=== PATIENT | female | born 1970 | race American Indian/Alaskan Native ===

== ENCOUNTER 2019-07-02 13:19 | Inpatient (IN) | payer MEDICARE ==
[2019-07-02] MEDS ORDERED: SODIUM CHLORIDE 0.9% 1000 ML 1,000 ML IV ONE (14:02)
--- NOTE | 2019-07-02 14:09 | Emergency Department Report ---
ED General Adult HPI - General Chief complaint: Chest Pain Stated complaint: N/V Time Seen by Provider: 07/02/19 14:02 Source: patient, EMS Mode of arrival: Stretcher Limitations: No Limitations - History of Present Illness Initial comments: Patient is a 48-year-old female who is presenting with shortness of breath and palpitations. Patient states that she's been having some mild nausea as well. Patient denies chest pain but states she has just a fluttering in the chest is uncomfortable. His symptoms of this for present for the past 2 days. Patient recently started minoxidil 10 mg and she is being weaned off of clonidine. Patient is on her second day of her weaning process. Patient denies fevers chills cough cold congestion sore throat or neck stiffness. - Related Data Previous Rx's Medication Instructions Recorded Last Taken Type EPINEPHrine (NF) [Epipen (Nf)] 0.3 mg IM ONCE #1 syringekit 01/16/16 Unknown Rx predniSONE [Deltasone] 20 mg PO QDAY #5 tab 01/16/16 Unknown Rx Allergies Allergy/AdvReac Type Severity Reaction Status Date / Time lisinopril Allergy Anaphylaxis Verified 01/16/16 01:36 montelukast sodium Allergy Swelling Verified 01/16/16 01:36 [From Singulair] verapamil Allergy Hives Verified 01/16/16 01:36 ED Review of Systems ROS: Stated complaint: N/V Other details as noted in HPI Comment: All other systems reviewed and negative ED Past Medical Hx - Past Medical History Hx Hypertension: Yes Hx Renal Disease: Yes (not needing dialysis) - Surgical History Past Surgical History?: Yes Additional Surgical History: partial hysterectomy - Social History Smoking Status: Former Smoker Substance Use Type: None - Medications Home Medications: Home Medications Medication Instructions Recorded Confirmed Last Taken Type EPINEPHrine (NF) [Epipen (Nf)] 0.3 mg IM ONCE #1 syringekit 01/16/16 Unknown Rx predniSONE [Deltasone] 20 mg PO QDAY #5 tab 01/16/16 Unknown Rx ED Physical Exam - General Limitations: No Limitations General appearance: alert, in no apparent distress - Head Head exam: Present: atraumatic, normocephalic - Eye Eye exam: Present: normal appearance - ENT ENT exam: Present: normal orophraynx, mucous membranes moist - Neck Neck exam: Present: normal inspection - Respiratory Respiratory exam: Present: normal lung sounds bilaterally. Absent: respiratory distress, wheezes, rales, rhonchi - Cardiovascular Cardiovascular Exam: Present: normal rhythm, tachycardia. Absent: systolic murmur, diastolic murmur, rubs, gallop - GI/Abdominal GI/Abdominal exam: Present: soft, normal bowel sounds. Absent: distended, tenderness, guarding, rebound - Extremities Exam Extremities exam: Present: normal inspection - Back Exam Back exam: Present: normal inspection - Neurological Exam Neurological exam: Present: alert, oriented X3 - Psychiatric Psychiatric exam: Present: normal affect, normal mood - Skin Skin exam: Present: warm, dry, intact, normal color. Absent: rash ED Course Vital Signs 07/02/19 07/02/19 07/02/19 13:35 14:19 14:20 Temperature 98.6 F Pulse Rate 124 H 123 H 123 H Respiratory 12 18 Rate Blood Pressure 166/112 159/106 Blood Pressure 159/102 [Left] O2 Sat by Pulse 98 100 Oximetry 07/02/19 07/02/19 07/02/19 16:03 16:15 16:37 Temperature Pulse Rate 110 H 100 H 100 H Respiratory 18 16 Rate Blood Pressure 162/102 Blood Pressure 189/119 162/102 [Left] O2 Sat by Pulse 99 97 Oximetry 07/02/19 07/02/19 16:38 17:29 Temperature Pulse Rate 102 H 100 H Respiratory 18 18 Rate Blood Pressure Blood Pressure 145/101 148/92 [Left] O2 Sat by Pulse 99 100 Oximetry ED Medical Decision Making - Lab Data Result diagrams: 07/02/19 13:55 07/02/19 13:55 Lab Results 07/02/19 07/02/19 07/02/19 Range/Units 13:55 13:55 13:55 WBC 6.3 (4.5-11.0) K/mm3 RBC 4.41 (3.65-5.03) M/mm3 Hgb 13.2 (10.1-14.3) gm/dl Hct 40.3 (30.3-42.9) % MCV 91 (79-97) fl MCH 30 (28-32) pg MCHC 33 (30-34) % RDW 14.1 (13.2-15.2) % Plt Count 279 (140-440) K/mm3 Lymph % (Auto) 45.4 H (13.4-35.0) % [place] % (Auto) 10.7 H (0.0-7.3) % Eos % (Auto) 1.1 (0.0-4.3) % Baso % (Auto) 0.7 (0.0-1.8) % Lymph # 2.9 (1.2-5.4) K/mm3 [place] # 0.7 (0.0-0.8) K/mm3 Eos # 0.1 (0.0-0.4) K/mm3 Baso # 0.0 (0.0-0.1) K/mm3 Seg Neutrophils % 42.1 (40.0-70.0) % Seg Neutrophils # 2.7 (1.8-7.7) K/mm3 PT 13.0 (12.2-14.9) Sec. INR 0.99 (0.87-1.13) APTT 29.1 (24.2-36.6) Sec. D-Dimer 2099.05 H (0-234) ng/mlDDU Sodium 140 (137-145) mmol/L Potassium 3.2 L (3.6-5.0) mmol/L Chloride 98.1 (98-107) mmol/L Carbon Dioxide 24 (22-30) mmol/L Anion Gap 21 mmol/L BUN 26 H (7-17) mg/dL Creatinine 3.3 H (0.7-1.2) mg/dL Estimated GFR 18 ml/min BUN/Creatinine Ratio 8 % Glucose 147 H (65-100) mg/dL Calcium 9.2 (8.4-10.2) mg/dL Total Bilirubin 0.30 (0.1-1.2) mg/dL AST 20 (5-40) units/L ALT 13 (7-56) units/L Alkaline Phosphatase 77 (35-129) units/L Troponin T 0.167 H* (0.00-0.029) ng/mL Total Protein 8.2 (6.3-8.2) g/dL Albumin 4.4 (3.9-5) g/dL Albumin/Globulin Ratio 1.2 % Triglycerides 164 H (2-149) mg/dL Cholesterol 248 H (50-199) mg/dL LDL Cholesterol Direct 184 H (50-130) mg/dL HDL Cholesterol 49 (40-59) mg/dL Cholesterol/HDL Ratio 5.06 % Patient had kidney function testing 1 week ago her GFR was 25 BU and 18 creatinine 2.55. - EKG Data -: EKG Interpreted by De EKG shows normal: sinus rhythm, axis, intervals, QRS complexes, ST-T waves Rate: tachycardia - Radiology Data NUCLEAR MEDICINE VENTILATION/PERFUSION LUNG SCAN INDICATION: Tachycardia. Shortness of breath. TECHNIQUE: 10 mCi of Xe-133 were given by inhalation. 5 mCi of Tc-99m MAA were given by IV. COMPARISON: Chest radiograph from earlier today. FINDINGS: VENTILATION: No significant ventilation defects. PERFUSION: No significant perfusion defects. ADDITIONAL FINDINGS: None. IMPRESSION: 1. Low probability for pulmonary embolism. Signer Name: Marvin York MD Signed: 07/02/2019 3:44 PM Workstation Name: [id number] Transcribed By: SUKUMAR Dictated By: Marvin York MD Electronically Authenticated By: Ordering Physician: VINAY VASQUEZ MD Date of Service: 07/02/19 Procedure(s): XR chest routine 2V Accession Number(s): [id number] cc: VINAY VASQUEZ MD Fluoro Time In Minutes: CHEST 2 VIEWS INDICATION / CLINICAL INFORMATION: Chest Pain. COMPARISON: None available. FINDINGS: SUPPORT DEVICES: None. HEART / MEDIASTINUM: Normal heart size. Atherosclerosis in the thoracic aorta. LUNGS / PLEURA: No significant pulmonary or pleural abnormality. No pneumothorax. ADDITIONAL FINDINGS: No significant additional findings. IMPRESSION: 1. No acute findings. Signer Name: Osmany Hernandes MD Signed: 07/02/2019 2:18 PM Workstation Name: [id number] - Medical Decision Making He is a 48-year-old [place] female presenting with elevated blood pressure. The patient's likely having some mild rebound hypertension secondary to being weaned off of her clonidine. Patient said chest pain and some nausea shortness of breath after being taken off this medication. Patient's renal function has worsened since last week. We were able to obtain records from her [facility]. Patient also has elevation of her troponin. There is no history of elevated troponins in our system. The assumption is that the patient because she has chest pain as having a incidentally to proven otherwise. We will watch L serial troponins overnight. Patient's blood pressure did respond to second dose of labetalol. Critical care attestation.: If time is entered above; I have spent that time in minutes in the direct care of this critically ill patient, excluding procedure time. ED Disposition Clinical Impression: NSTEMI (non-ST elevated myocardial infarction), Rebound hypertension, Tachycardia, Acute on chronic renal failure Disposition: OP ADMIT IP TO THIS HOSP Is pt being admited?: Yes Does the pt Need Aspirin: No Condition: Stable Time of Disposition: 17:55
[2019-07-02 14:20] LABS: Basophils % (Auto) 0.7 % (0.0-1.8); Eosinophils # (Auto) 0.1 K/mm3 (0.0-0.4); Eosinophils % (Auto) 1.1 % (0.0-4.3); Hematocrit 40.3 % (30.3-42.9); Hemoglobin 13.2 gm/dl (10.1-14.3); Lymphocytes # (Auto) 2.9 K/mm3 (1.2-5.4); Lymphocytes % (Auto) 45.4 % (13.4-35.0); Mean Corpuscular HGB Conc 33 % (30-34); Mean Corpuscular Volume 91 fl (79-97); Monocytes # (Auto) 0.7 K/mm3 (0.0-0.8); Monocytes % (Auto) 10.7 % (0.0-7.3); Platelet Count 279 K/mm3 (140-440); Red Blood Count 4.41 M/mm3 (3.65-5.03); Red Cell Distribution Width 14.1 % (13.2-15.2)
--- NOTE | 2019-07-02 14:23 | XRay Report ---
CHEST 2 VIEWS INDICATION / CLINICAL INFORMATION: Chest Pain. COMPARISON: None available. FINDINGS: SUPPORT DEVICES: None. HEART / MEDIASTINUM: Normal heart size. Atherosclerosis in the thoracic aorta. LUNGS / PLEURA: No significant pulmonary or pleural abnormality. No pneumothorax. ADDITIONAL FINDINGS: No significant additional findings. IMPRESSION: 1. No acute findings. Signer Name: Osmany Hernandes MD Signed: 07/02/2019 2:18 PM Workstation Name: [id number]
[2019-07-02 14:33] LABS: INR 0.99 (0.87-1.13); Partial Thromboplastin Time 29.1 Sec. (24.2-36.6)
[2019-07-02 14:39] LABS: Albumin 4.4 g/dL (3.9-5); Calcium 9.2 mg/dL (8.4-10.2)
[2019-07-02 15:21] LABS: Chol/HDL Ratio 5.06 %
--- NOTE | 2019-07-02 15:49 | Nuclear Medicine Report ---
NUCLEAR MEDICINE VENTILATION/PERFUSION LUNG SCAN INDICATION: Tachycardia. Shortness of breath. TECHNIQUE: 10 mCi of Xe-133 were given by inhalation. 5 mCi of Tc-99m MAA were given by IV. COMPARISON: Chest radiograph from earlier today. FINDINGS: VENTILATION: No significant ventilation defects. PERFUSION: No significant perfusion defects. ADDITIONAL FINDINGS: None. IMPRESSION: 1. Low probability for pulmonary embolism. Signer Name: Marvin York MD Signed: 07/02/2019 3:44 PM Workstation Name: [id number]
[2019-07-02] MEDS ORDERED: MORPHINE 4 MG/1 ML INJ IV ONE ×2 (16:13→17:27)
[2019-07-02] MEDS ORDERED: ONDANSETRON 4 MG/2 ML INJ IV ONE (16:39)
[2019-07-02] MEDS ORDERED: HEPARIN 10,000 UNITS/10 ML VIAL IV ONE (17:45)
[2019-07-02] MEDS ORDERED: DICYCLOMINE 20 MG/2 ML INJ IM ONE ×2 (17:45→17:46)
[2019-07-02] MEDS ORDERED: ASPIRIN 325 MG TAB PO ONE (17:50)
[2019-07-02 18:35] LABS: Hematocrit 36.3 % (30.3-42.9); Hemoglobin 12.3 gm/dl (10.1-14.3)
[2019-07-02 18:49] LABS: INR 1.02 (0.87-1.13)
[2019-07-02 18:50] LABS: Partial Thromboplastin Time 27.2 Sec. (24.2-36.6)
[2019-07-02] MEDS: HEPARIN/ 0.45% NACL DRIP 25,000 UNIT/500 ML BAG IV SCH (19:09)
[2019-07-02] MEDS ORDERED: ASPIRIN 325 MG TAB ONE (19:22)
[2019-07-02] MEDS ORDERED: NON-FORMULARY EACH (Losartan [Cozaar] 100 MG) PO SCH (21:15)
[2019-07-02] MEDS ORDERED: EPINEPHRINE 0.3 MG IM SCH (21:15)
--- NOTE | 2019-07-02 21:18 | History and Physical Report ---
History of Present Illness Date of examination: 07/02/19 Date of admission: 07/02/19 17:56 Chief complaint: SOB History of present illness: Patient is a 48-year-old female with h/o HTN, stage 4 CKD with Cr 2.5, h/o CVA w/o any residual weakness who is presenting with shortness of breath and palpitations for last two days. Patient recently started minoxidil 10 mg and she is being weaned off of clonidine. Patient is on her second day of her weaning process. Patient states that she's been having some mild nausea as well. Patient denies chest pain but states that she feels chest tightness. She believes may be symptoms developed b/o her new med minoxidil. Patient denies fevers chills cough cold congestion sore throat or neck stiffness. In the ER her BP was 166/112, K 3.0 and Cr 3.3. Her troponin was also elevated with ST on EKG. She is being admitted for further evaluation and Mx. Review of System: Constitutional: no fever, no chills, no weight loss Ears, eyes, nose, mouth and throat: no nasal congestion, no nasal discharge, no sinus pressure, no vision change, no red eye. Neck: No neck pain or rigidity. Cardiovascular: + chest tightness, no orthopnea, no palpitations, no leg swelling Respiratory: + shortness of breath now resolved, no cough, no congestion, no wheezing Gastrointestinal: no abdominal pain, no nausea, no vomiting Genitourinary : no dysuria, no hematuria Musculoskeletal: no joint swelling or muscle ache Integumentary: no rash, no pruritis Neurological: no parathesias, no numbness, no tingling Endocrine: no cold or heat intolerance, no polyuria or polydipsia Hematologic/Lymphatic: no easy bruising, no easy bleeding, no gland swelling Allergic/Immunologic: no urticaria, no angioedema. Medications and Allergies Allergies Allergy/AdvReac Type Severity Reaction Status Date / Time lisinopril Allergy Anaphylaxis Verified 01/16/16 01:36 montelukast sodium Allergy Swelling Verified 01/16/16 01:36 [From [facility]] verapamil Allergy Hives Verified 01/16/16 01:36 Home Medications Medication Instructions Recorded Confirmed Last Taken Type EPINEPHrine (NF) [Epipen (Nf)] 0.3 mg IM ONCE #1 syringekit 01/16/16 Unknown Rx predniSONE [Deltasone] 20 mg PO QDAY #5 tab 01/16/16 Unknown Rx Allopurinol [Zyloprim] 100 mg PO BID 07/02/19 Unknown History Aspirin [Adult Aspirin] 07/02/19 Unknown History Cholecalciferol (Vitamin D3) 07/02/19 Unknown History [Vitamin D3 5,000 UNIT] Doxazosin [Cardura] 8 mg PO HS 07/02/19 07/02/19 Unknown History Ergocalciferol [Vitamin D2] 1 cap PO QWEEK 07/02/19 07/02/19 Unknown History Ergocalciferol [Vitamin D2] 50,000 unit PO 07/02/19 Unknown History Furosemide [Lasix TAB] 40 mg PO BID 07/02/19 07/02/19 Unknown History Gabapentin [Neurontin] 300 mg PO Q8HR 07/02/19 07/02/19 Unknown History Losartan [Cozaar] 100 mg PO QDAY 07/02/19 07/02/19 Unknown History Losartan/Hydrochlorothiazide 07/02/19 Unknown History [Losartan-Hctz 100-25 mg Tab] Metoprolol Succinate [Toprol Xl] PO BID 07/02/19 Unknown History Minoxidil [Loniten] 10 mg PO QDAY 07/02/19 07/02/19 Unknown History Nitroglycerin [Nitrostat] 07/02/19 Unknown History cloNIDine [Catapres] 0.3 mg PO TID 07/02/19 07/02/19 Unknown History Active Meds: Active Medications Allopurinol (Zyloprim) 100 mg PO BID [facility]ENKA Doxazosin Mesylate (Cardura) 8 mg PO HS [facility] Ergocalciferol (Vitamin D2) unit PO QWEEK [facility] Ergocalciferol (Vitamin D2) 50,000 unit PO QWEEK [facility] Furosemide (Lasix) 40 mg PO BID [facility] Gabapentin (Gabapentin) 300 mg PO Q8HR [facility] Heparin Sodium/Sodium Chloride (Heparin/ 0.45% Nacl-25,000 Unit/500 Ml) 25,000 unit in 500 mls @ 20 mls/hr IV TITRATE LENKA; Protocol Last Admin: 07/02/19 19:09 Dose: 1,000 units/hr, 20 mls/hr Documented by: Sodium Chloride (Nacl 0.9% 1000 Ml) 1,000 mls @ 125 mls/hr IV DIRECT LENKA Metoprolol Succinate (Metoprolol Xl) 100 mg PO BID LENKA Miscellaneous Medication (Losartan [Cozaar]) 100 mg PO QDAY LENKA Miscellaneous Medication (Epinephrine (Nf)) 0.3 mg IM ONCE LENKA Exam - Physical Exam Narrative exam: GENERAL: well-developed and obese AAF lying on bed appeared to be in no discomfort. HEENT: Normocephalic. Atraumatic. No conjunctival congestion or icterus. Patient has moist mucous membranes. NECK: Supple. Trachea midline. CHEST/LUNGS: Clear to auscultated bilaterally, breathing nonlabored. No wheezes crackles or rhonchi. HEART/CARDIOVASCULAR: Regular in rate and rhythm. S1 and S2 positive. ABDOMEN: Abdomen is soft, nontender. Patient has normal bowel sounds. SKIN: There is no rash. Warm and dry. NEURO: No focal motor deficit. Follows command. MUSCULOSKELETAL: No joint effusion or tenderness. EXTRIMITY: No edema, no cyanosis or clubbing. PSYCH: Cooperative. - Constitutional Vitals: Temp Pulse Resp BP Pulse Ox 98.6 F 112 H 17 159/110 95 07/02/19 20:49 07/02/19 20:49 07/02/19 20:49 07/02/19 20:49 07/02/19 20:49 Results - Labs CBC & Chem 7: 07/02/19 18:18 07/03/19 02:25 Labs: Abnormal lab results 07/02/19 07/02/19 07/02/19 Range/Units 13:55 13:55 13:55 Lymph % (Auto) 45.4 H (13.4-35.0) % [place] % (Auto) 10.7 H (0.0-7.3) % D-Dimer 2099.05 H (0-234) ng/mlDDU Potassium 3.2 L (3.6-5.0) mmol/L BUN 26 H (7-17) mg/dL Creatinine 3.3 H (0.7-1.2) mg/dL Glucose 147 H (65-100) mg/dL Troponin T 0.167 H* (0.00-0.029) ng/mL Triglycerides 164 H (2-149) mg/dL Cholesterol 248 H (50-199) mg/dL LDL Cholesterol Direct 184 H (50-130) mg/dL Assessment and Plan Accelerated HTN - resume home meds, hydralazine iv as needed - hold minoxidil/clonidine/ACEI for now due to JUAN LUIS Acute Respiratory distress, resolved now - nebs as needed - normal cxr, negative VQ scan - will get 2d echo JUAN LUIS on CKD stage IV - monitor renal function - consult nephrology in the am - baseline Cr 2.5, hold ACEI for now h/o CVA w/o any hameparesis - start on aspirin and statin hypokalemia, replete HLD, cont statin Elevated troponin - tanya NSTEMI type 2 ? - monitor with serial CE and EKG - will place on Aspirin, statin, BB, heparin drip - as needed SL NTG and iv morphin for pain - order 2D echo and consult cardiology - cardiac diet now, NPO after midnight for further possible cardiac workup Obesity, diet and exercise recommendation when medically stable DVT Px, heparin drip Radiological data: CXR - no infiltrates VQ scan - low probability for PE
[2019-07-02] MEDS ORDERED: POTASSIUM CHLORIDE ER 20 MEQ TAB PO ONE (22:00)
[2019-07-02] MEDS ORDERED: allopurinoL 100 MG TAB PO SCH (22:00)
[2019-07-02] MEDS: SODIUM CHLORIDE 0.9% 1000 ML 1,000 ML IV SCH (22:11)
[2019-07-02] MEDS: GABAPENTIN 300 MG CAP PO SCH (22:12)
[2019-07-02] MEDS: METOPROLOL SUCCINATE XL 100 MG TAB PO SCH (22:12)
[2019-07-02] MEDS: DOXAZOSIN 4 MG TAB PO SCH (22:13)
[2019-07-02] MEDS: FUROSEMIDE 40 MG TAB PO SCH (22:16)
[2019-07-02] MEDS: ONDANSETRON 4 MG/2 ML INJ IV PRN (22:42)
[2019-07-02] MEDS: MORPHINE 2 MG/1 ML INJ IV PRN (23:54)
[2019-07-03 03:08] LABS: Calcium 8.9 mg/dL (8.4-10.2)
[2019-07-03] MEDS: SODIUM CHLORIDE 0.9% 1000 ML 1,000 ML IV SCH (06:40)
[2019-07-03] MEDS: ONDANSETRON 4 MG/2 ML INJ IV PRN ×2 (06:41→12:58)
[2019-07-03] MEDS: GABAPENTIN 300 MG CAP PO SCH ×3 (06:41→21:35)
[2019-07-03] MEDS: FUROSEMIDE 40 MG TAB PO SCH ×2 (06:41→18:55)
[2019-07-03] MEDS: MORPHINE 2 MG/1 ML INJ IV PRN (06:41)
[2019-07-03] MEDS: HEPARIN/ 0.45% NACL DRIP 25,000 UNIT/500 ML BAG IV SCH ×2 (08:32→20:01)
[2019-07-03] MEDS: ASPIRIN 325 MG TAB PO SCH (10:32)
[2019-07-03] MEDS: allopurinoL 100 MG TAB PO SCH (10:32)
[2019-07-03] MEDS: METOPROLOL SUCCINATE XL 100 MG TAB PO SCH ×2 (10:32→21:36)
[2019-07-03] MEDS: LOSARTAN 50 MG TAB PO SCH (10:32)
--- NOTE | 2019-07-03 11:04 | Consultation ---
History of Present Illness Consult date: 07/03/19 Requesting physician: TRUE BUNN Consult reason: elevated troponin History of present illness: The patient has a history of hypertension and she is on multiple medications. She claims that she was experiencing what she describes as migraine headaches on clonidine. As such, about a week ago, her PCP decided to start weaning her off clonidine. She was started on minoxidil one week ago. Since initiation of the medication, she has been experiencing palpitations, dizziness and fatigue. She presented to the emergency department with worsening of symptoms associated with substernal chest pressure and dyspnea. Her troponin is mildly elevated. Due to significantly elevated d-dimer, she had a VQ scan which was of low probability for pulmonary embolism. Her cholesterol level is 248 with an LDL of 184. Past History Past Medical History: hypertension Past Surgical History: cholecystectomy, hysterectomy (partial) Social history: denies: smoking, alcohol abuse Family history: CAD Medications and Allergies Allergies Allergy/AdvReac Type Severity Reaction Status Date / Time lisinopril Allergy Anaphylaxis Verified 01/16/16 01:36 montelukast sodium Allergy Swelling Verified 01/16/16 01:36 [From Singulair] verapamil Allergy Hives Verified 01/16/16 01:36 Home Medications Medication Instructions Recorded Confirmed Last Taken Type EPINEPHrine (NF) [Epipen (Nf)] 0.3 mg IM ONCE #1 syringekit 01/16/16 Unknown Rx predniSONE [Deltasone] 20 mg PO QDAY #5 tab 01/16/16 Unknown Rx Allopurinol [Zyloprim] 100 mg PO BID 07/02/19 Unknown History Aspirin [Adult Aspirin] 07/02/19 Unknown History Cholecalciferol (Vitamin D3) 07/02/19 Unknown History [Vitamin D3 5,000 UNIT] Doxazosin [Cardura] 8 mg PO HS 07/02/19 07/02/19 Unknown History Ergocalciferol [Vitamin D2] 1 cap PO QWEEK 07/02/19 07/02/19 Unknown History Ergocalciferol [Vitamin D2] 50,000 unit PO 07/02/19 Unknown History Furosemide [Lasix TAB] 40 mg PO BID 07/02/19 07/02/19 Unknown History Gabapentin [Neurontin] 300 mg PO Q8HR 07/02/19 07/02/19 Unknown History Losartan [Cozaar] 100 mg PO QDAY 07/02/19 07/02/19 Unknown History Losartan/Hydrochlorothiazide 07/02/19 Unknown History [Losartan-Hctz 100-25 mg Tab] Metoprolol Succinate [Toprol Xl] PO BID 07/02/19 Unknown History Minoxidil [Loniten] 10 mg PO QDAY 07/02/19 07/02/19 Unknown History Nitroglycerin [Nitrostat] 07/02/19 Unknown History cloNIDine [Catapres] 0.3 mg PO TID 07/02/19 07/02/19 Unknown History Active Meds: Active Medications Allopurinol (Zyloprim) 100 mg PO QDAY [facility] Last Admin: 07/03/19 10:32 Dose: 100 mg Documented by: Aspirin (Aspirin) 325 mg PO QDAY [facility] Last Admin: 07/03/19 10:32 Dose: 325 mg Documented by: Atorvastatin Calcium (Lipitor) 40 mg PO QHS [facility] Last Admin: 07/02/19 22:12 Dose: 40 mg Documented by: Doxazosin Mesylate (Cardura) 8 mg PO HS [facility] Last Admin: 07/02/19 22:13 Dose: 8 mg Documented by: Ergocalciferol (Vitamin D2) 50,000 unit PO Tu [facility] Furosemide (Lasix) 40 mg PO 0600,1800 [facility] Last Admin: 07/03/19 06:41 Dose: 40 mg Documented by: Gabapentin (Gabapentin) 300 mg PO Q8HR [facility] Last Admin: 07/03/19 06:41 Dose: 300 mg Documented by: Heparin Sodium/Sodium Chloride (Heparin/ 0.45% Nacl-25,000 Unit/500 Ml) 25,000 unit in 500 mls @ 20 mls/hr IV TITRATE LENKA; Protocol Last Admin: 07/03/19 08:32 Dose: 900 units/hr, 18 mls/hr Documented by: Sodium Chloride (Nacl 0.9% 1000 Ml) 1,000 mls @ 125 mls/hr IV DIRECT [facility] Last Admin: 07/03/19 06:40 Dose: 125 mls/hr Documented by: Losartan Potassium (Cozaar) 100 mg PO QDAY [facility] Last Admin: 07/03/19 10:32 Dose: 100 mg Documented by: Metoprolol Succinate (Metoprolol Xl) 100 mg PO BID [facility] Last Admin: 07/03/19 10:32 Dose: 100 mg Documented by: Morphine Sulfate (Morphine) 2 mg IV Q4H PRN PRN Reason: Pain, Moderate (4-6) Last Admin: 07/03/19 06:41 Dose: 2 mg Documented by: Ondansetron HCl (Zofran) 4 mg IV Q6H PRN PRN Reason: Nausea And Vomiting Last Admin: 07/03/19 06:41 Dose: 4 mg Documented by: Review of Systems Constitutional: no fever, no chills Ears, nose, mouth and throat: no ear pain, no ear discharge, no sore throat Cardiovascular: chest pain, palpitations, lightheadedness, shortness of breath Respiratory: shortness of breath, no cough, no hemoptysis Gastrointestinal: no abdominal pain, no nausea, no vomiting, no diarrhea, no constipation Genitourinary Female: no dysuria, no urinary frequency Rectal: no pain, no bleeding Musculoskeletal: no neck stiffness, no neck pain, no myalgias Integumentary: no rash, no pruritis Neurological: no parathesias, no numbness, no headaches Endocrine: no cold intolerance, no heat intolerance Hematologic/Lymphatic: no easy bruising, no easy bleeding Allergic/Immunologic: no urticaria, no wheezing Physical Examination Vital Signs Last Vital Signs Temp 98.3 F 07/03/19 03:58 Pulse 94 H 07/03/19 10:32 Resp 18 07/03/19 06:41 BP 119/73 07/03/19 10:32 Pulse Ox 95 07/03/19 03:58 General appearance: no acute distress HEENT: Positive: EOMI, Normocephaly, Mucus Membranes Moist Neck: Positive: neck supple, trachea midline Cardiac: Positive: Reg Rate and Rhythm, S1/S2 Lungs: Positive: clear to auscultation Neuro: Positive: Grossly Intact Abdomen: Positive: Soft, Active Bowel Sounds. Negative: Tender Skin: Positive: Clear. Negative: Rash Musculoskeletal: Normal Range of Motion Extremities: Present: normal. Absent: edema Results 07/02/19 18:18 07/03/19 02:25 Cardiac Enzymes 07/02/19 Range/Units 13:55 AST 20 (5-40) units/L Coagulation 07/02/19 07/02/19 Range/Units 13:55 18:18 PT 13.0 13.3 (12.2-14.9) Sec. INR 0.99 1.02 (0.87-1.13) APTT 29.1 27.2 (24.2-36.6) Sec. Lipids 07/02/19 Range/Units 13:55 Triglycerides 164 H (2-149) mg/dL Cholesterol 248 H (50-199) mg/dL HDL Cholesterol 49 (40-59) mg/dL Cholesterol/HDL Ratio 5.06 % CBC 07/02/19 07/02/19 Range/Units 13:55 18:18 WBC 6.3 (4.5-11.0) K/mm3 RBC 4.41 (3.65-5.03) M/mm3 Hgb 13.2 12.3 (10.1-14.3) gm/dl Hct 40.3 36.3 (30.3-42.9) % Plt Count 279 251 (140-440) K/mm3 Lymph # 2.9 (1.2-5.4) K/mm3 [place] # 0.7 (0.0-0.8) K/mm3 Eos # 0.1 (0.0-0.4) K/mm3 Baso # 0.0 (0.0-0.1) K/mm3 Comprehensive Metabolic Panel 07/02/19 07/03/19 Range/Units 13:55 02:25 Sodium 140 142 (137-145) mmol/L Potassium 3.2 L 4.1 D (3.6-5.0) mmol/L Chloride 98.1 101.4 (98-107) mmol/L Carbon Dioxide 24 24 (22-30) mmol/L BUN 26 H 24 H (7-17) mg/dL Creatinine 3.3 H 3.0 H (0.7-1.2) mg/dL Glucose 147 H 116 H (65-100) mg/dL Calcium 9.2 8.9 (8.4-10.2) mg/dL AST 20 (5-40) units/L ALT 13 (7-56) units/L Alkaline Phosphatase 77 (35-129) units/L Total Protein 8.2 (6.3-8.2) g/dL Albumin 4.4 (3.9-5) g/dL - Imaging and Cardiology EKG: image reviewed EKG interpretations - Telemetry EKG Rhythm: Sinus Rhythm - EKG Sinus rhythms and dysrhythmias: sinus rhythm AV and intraventricular conduction: right bundle branch block Myocardial infarction: inferior AR (old age inde Assessment and Plan Optimize antihypertensive regimen. Schedule Lexiscan stress MPI in a.m. Obtain echocardiogram. - Patient Problems (1) Elevated troponin level Current Visit: Yes Status: Acute (2) Chest pain Current Visit: Yes Status: Acute (3) CKD (chronic kidney disease) Current Visit: Yes Status: Chronic Qualifiers: Chronic kidney disease stage: stage 4 (severe) Qualified Code(s): N18.4 - Chronic kidney disease, stage 4 (severe) (4) Hypertension Current Visit: Yes Status: Chronic Qualifiers: Hypertension type: essential hypertension Qualified Code(s): I10 - Essential (primary) hypertension (5) Hyperlipidemia Current Visit: Yes Status: Acute
[2019-07-03] MEDS ORDERED: ACETAMINOPHEN 325 MG TAB PO PRN (13:22)
--- NOTE | 2019-07-03 18:53 | Progress Note ---
Assessment and Plan Assessment and plan: Patient is a 48-year-old woman with h/o refractory HTN, stage 4 CKD with Cr 2.5 and 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 She started having these palpitation after PCP started to wean off clonidine to Minoxidil, which also causes nausea. In the ER her BP was 166/112, K 3.0 and Cr 3.3. Her troponin and D-dimer were elevated with ST changes on EKG. * pCXR - no infiltrates * VQ scan - low probability for PE NSTEMI with chest pains: on iv heparin drip, stress test in am, ECHO pending Ruled out PE Accelerated HTN - resume home meds, hydralazine iv as needed- hold minoxidil/clonidine/ACEI for now due to JUAN LUIS Acute Respiratory failure, poa, resolved now JUAN LUIS on CKD stage IV - monitor renal function- consult nephrology- baseline Cr 2.5, hold ACEI for now h/o CVA w/o any hemiparesis- start on aspirin and statin Hypokalemia, replete: monitor bmp closely, check mg level HLD, cont statin DVT Px, heparin drip History Interval history: Patient was seen and examined. Follow-up on current diagnosis uncontrolled bp and chest pains, still present. No overnight events reported to me. Patient denies any nausea/vomiting or severe headaches. Imaging, nursing note, chart, labs and old chart reviewed. Discussed with patient. Hospitalist Physical - Physical exam Narrative exam: Gen: WDWN, NAD, Awake, Alert, Orientated HEENT: NCAT, EOMI, PERRL, OP Clear Neck: supple, no adenopathy, no thyromegaly, no JVD CVS/Heart: RRR, normal S1S2, pulses present bilaterally Chest/Lungs: CTA B, Symmetrical chest expansion, good air entry bilaterally GI/Abdomen: soft, NTND, good bowel sounds, no guarding or rebound /Bladder: no suprapubic tenderness, no CVA or paraspinal tenderness Extermity/Skin: no c/c/e, no obvious rash MSK: FROM x 4 Neuro: CN 2-12 grossly intact, no new focal deficits Psych: calm - Constitutional Vitals: Temp Pulse Resp BP Pulse Ox 97.9 F 96 H 18 142/96 99 11/20/19 18:05 07/03/19 18:05 07/03/19 18:05 07/03/19 18:05 07/03/19 18:05 General appearance: Present: no acute distress Results - Labs CBC & Chem 7: 07/02/19 18:18 07/03/19 02:25 Labs: Laboratory Last Values WBC 6.3 K/mm3 (4.5-11.0) 07/02/19 13:55 RBC 4.41 M/mm3 (3.65-5.03) 07/02/19 13:55 Hgb 12.3 gm/dl (10.1-14.3) 07/02/19 18:18 Hct 36.3 % (30.3-42.9) 07/02/19 18:18 MCV 91 fl (79-97) 07/02/19 13:55 MCH 30 pg (28-32) 07/02/19 13:55 MCHC 33 % (30-34) 07/02/19 13:55 RDW 14.1 % (13.2-15.2) 07/02/19 13:55 Plt Count 251 K/mm3 (140-440) 07/02/19 18:18 Lymph % (Auto) 45.4 % (13.4-35.0) H 07/02/19 13:55 [place] % (Auto) 10.7 % (0.0-7.3) H 07/02/19 13:55 Eos % (Auto) 1.1 % (0.0-4.3) 07/02/19 13:55 Baso % (Auto) 0.7 % (0.0-1.8) 07/02/19 13:55 Lymph # 2.9 K/mm3 (1.2-5.4) 07/02/19 13:55 [place] # 0.7 K/mm3 (0.0-0.8) 07/02/19 13:55 Eos # 0.1 K/mm3 (0.0-0.4) 07/02/19 13:55 Baso # 0.0 K/mm3 (0.0-0.1) 07/02/19 13:55 Seg Neutrophils % 42.1 % (40.0-70.0) 07/02/19 13:55 Seg Neutrophils # 2.7 K/mm3 (1.8-7.7) 07/02/19 13:55 PT 13.3 Sec. (12.2-14.9) 07/02/19 18:18 INR 1.02 (0.87-1.13) 07/02/19 18:18 APTT 27.2 Sec. (24.2-36.6) 07/02/19 18:18 D-Dimer 2099.05 ng/mlDDU (0-234) H 07/02/19 13:55 Heparin Anti-Xa Level 0.32 U.I./ml (0.3-0.7) 07/03/19 14:39 Sodium 142 mmol/L (137-145) 07/03/19 02:25 Potassium 4.1 mmol/L (3.6-5.0) D 07/03/19 02:25 Chloride 101.4 mmol/L (98-107) 07/03/19 02:25 Carbon Dioxide 24 mmol/L (22-30) 07/03/19 02:25 Anion Gap 21 mmol/L 07/03/19 02:25 BUN 24 mg/dL (7-17) H 07/03/19 02:25 Creatinine 3.0 mg/dL (0.7-1.2) H 07/03/19 02:25 Estimated GFR 20 ml/min 07/03/19 02:25 BUN/Creatinine Ratio 8 % 07/03/19 02:25 Glucose 116 mg/dL (65-100) H 07/03/19 02:25 Calcium 8.9 mg/dL (8.4-10.2) 07/03/19 02:25 Total Bilirubin 0.30 mg/dL (0.1-1.2) 07/02/19 13:55 AST 20 units/L (5-40) 07/02/19 13:55 ALT 13 units/L (7-56) 07/02/19 13:55 Alkaline Phosphatase 77 units/L (35-129) 07/02/19 13:55 Troponin T 0.088 ng/mL (0.00-0.029) H 07/03/19 17:48 Total Protein 8.2 g/dL (6.3-8.2) 07/02/19 13:55 Albumin 4.4 g/dL (3.9-5) 07/02/19 13:55 Albumin/Globulin Ratio 1.2 % 07/02/19 13:55 Triglycerides 164 mg/dL (2-149) H 07/02/19 13:55 Cholesterol 248 mg/dL (50-199) H 07/02/19 13:55 LDL Cholesterol Direct 184 mg/dL (50-130) H 07/02/19 13:55 HDL Cholesterol 49 mg/dL (40-59) 07/02/19 13:55 Cholesterol/HDL Ratio 5.06 % 07/02/19 13:55 Active Medications - Current Medications Current Medications: Generic Name Dose Route Start Last Admin Trade Name Freq PRN Reason Stop Dose Admin Acetaminophen 650 mg 07/03/19 13:22 Tylenol PO Q6H PRN Pain, Mild (1-3) Allopurinol 100 mg 07/03/19 10:00 07/03/19 10:32 Zyloprim PO 100 mg QDAY LENKA Administration Aspirin 325 mg 07/03/19 10:00 07/03/19 10:32 Aspirin PO 325 mg QDAY LENKA Administration Atorvastatin Calcium 40 mg 07/02/19 22:00 07/02/19 22:12 Lipitor PO 40 mg QHS LENKA Administration Doxazosin Mesylate 8 mg 07/02/19 22:00 07/02/19 22:13 Cardura PO 8 mg HS LENKA Administration Ergocalciferol 50,000 unit 07/09/19 10:00 Vitamin D2 PO Tu LENKA Furosemide 40 mg 07/02/19 22:00 07/03/19 06:41 Lasix PO 40 mg 0600,1800 LENKA Administration Gabapentin 300 mg 07/02/19 22:00 07/03/19 14:12 Gabapentin PO 300 mg Q8HR LENKA Administration Heparin Sodium/Sodium Chloride 25,000 unit in 500 mls @ 20 mls/hr 07/02/19 19:00 07/03/19 08:32 Heparin/ 0.45% Nacl-25,000 Unit/500 Ml IV 900 units/hr TITRATE LENKA 18 mls/hr Administration Protocol 1,000 UNITS/HR Sodium Chloride 1,000 mls @ 125 mls/hr 07/02/19 18:00 07/03/19 06:40 Nacl 0.9% 1000 Ml IV 125 mls/hr DIRECT LENKA Administration Losartan Potassium 100 mg 07/03/19 10:00 07/03/19 10:32 Cozaar PO 100 mg QDAY LENKA Administration Metoprolol Succinate 100 mg 07/02/19 22:00 07/03/19 10:32 Metoprolol Xl PO 100 mg BID LENKA Administration Morphine Sulfate 2 mg 07/02/19 22:54 07/03/19 06:41 Morphine IV 2 mg Q4H PRN Administration Pain, Moderate (4-6) Ondansetron HCl 4 mg 07/02/19 22:18 07/03/19 12:58 Zofran IV 4 mg Q6H PRN Administration Nausea And Vomiting
[2019-07-03] MEDS: DOXAZOSIN 4 MG TAB PO SCH (21:34)
[2019-07-04] MEDS: FUROSEMIDE 40 MG TAB PO SCH (06:17)
[2019-07-04] MEDS: GABAPENTIN 300 MG CAP PO SCH ×2 (06:17→13:15)
[2019-07-04 06:20] LABS: Hematocrit 34.9 % (30.3-42.9); Hemoglobin 11.4 gm/dl (10.1-14.3); Mean Corpuscular HGB Conc 33 % (30-34); Mean Corpuscular Volume 94 fl (79-97); Platelet Count 247 K/mm3 (140-440); Red Blood Count 3.72 M/mm3 (3.65-5.03)
[2019-07-04 06:42] LABS: Calcium 8.6 mg/dL (8.4-10.2)
[2019-07-04] MEDS ORDERED: REGADENOSON 0.4 MG/5 ML INJ IV ONE (08:00)
[2019-07-04] MEDS ORDERED: LORazepam 2 MG/ML VIAL ONE (08:17)
[2019-07-04] MEDS ORDERED: LORazepam 2 MG/ML VIAL IV PRN ×2 (08:21→18:00)
[2019-07-04] MEDS ORDERED: LORazepam 2 MG/ML VIAL IV NR (09:30)
[2019-07-04 10:36] VITALS: BP 121/78
[2019-07-04] MEDS: LOSARTAN 50 MG TAB PO SCH (10:40)
[2019-07-04] MEDS: METOPROLOL SUCCINATE XL 100 MG TAB PO SCH (10:40)
[2019-07-04] MEDS: allopurinoL 100 MG TAB PO SCH (10:40)
[2019-07-04] MEDS: ASPIRIN 325 MG TAB PO SCH (10:40)
--- NOTE | 2019-07-04 11:00 | Progress Note ---
Assessment and Plan The pt was brought down for stress test this morning and according to the RN at bedside, pt experienced generalized tonic clonic activity. She received her first radioactive injection and resting images were obtained and then she developed suspected seizure, she did not receive lexiscan. Additionally, pt c/o chills with apparent rigors. Stress test cancelled and lexiscan is known to reduce seizure threshold. Chest pain currently resolved. Recommend further w/o of possible seizure and consider neurology consultation per primary team. Echo reviewed - EF 55-60%, mild LVH, impaired relaxation. Cont present cardiac medical management. The patient has been seen in conjunction with Dr. Haas who agrees with the assessment and plan of care. - Patient Problems (1) Seizure Current Visit: Yes Status: Suspected (2) Chest pain Current Visit: Yes Status: Resolved (3) Elevated troponin level Current Visit: Yes Status: Acute (4) CKD (chronic kidney disease) Current Visit: Yes Status: Chronic Qualifiers: Chronic kidney disease stage: stage 4 (severe) Qualified Code(s): N18.4 - Chronic kidney disease, stage 4 (severe) (5) Hypertension Current Visit: Yes Status: Chronic Qualifiers: Hypertension type: essential hypertension Qualified Code(s): I10 - Essential (primary) hypertension (6) Hyperlipidemia Current Visit: Yes Status: Chronic Subjective Date of service: 07/04/19 Principal diagnosis: elevated trop; chest pain Interval history: The pt was brought down for stress test this morning and according to the RN at bedside, pt experienced generalized tonic clonic activity. Additionally, pt c/o chills with apparent rigors. stress test cancelled. Objective Last Vital Signs Temp 98.0 F 07/04/19 09:26 Pulse 95 H 07/04/19 10:40 Resp 18 07/04/19 09:26 BP 121/78 07/04/19 10:40 Pulse Ox 94 07/04/19 09:26 - Physical Examination General: No Apparent Distress HEENT: Positive: EOMI, Normocephaly, Mucus Membranes Moist Neck: Positive: neck supple, trachea midline Cardiac: Positive: Reg Rate and Rhythm, S1/S2 Lungs: Positive: Decreased Breath Sounds Neuro: Positive: Grossly Intact Abdomen: Positive: Soft, Active Bowel Sounds. Negative: Tender Skin: Positive: Clear. Negative: Rash Musculoskeletal: Normal Range of Motion Extremities: Present: normal. Absent: edema - Labs and Meds CBC 07/04/19 Range/Units 05:50 WBC 4.6 (4.5-11.0) K/mm3 RBC 3.72 (3.65-5.03) M/mm3 Hgb 11.4 (10.1-14.3) gm/dl Hct 34.9 (30.3-42.9) % Plt Count 247 (140-440) K/mm3 Comprehensive Metabolic Panel 07/04/19 Range/Units 05:50 Sodium 142 (137-145) mmol/L Potassium 4.4 (3.6-5.0) mmol/L Chloride 106.7 (98-107) mmol/L Carbon Dioxide 22 (22-30) mmol/L BUN 18 H (7-17) mg/dL Creatinine 2.6 H (0.7-1.2) mg/dL Glucose 109 H (65-100) mg/dL Calcium 8.6 (8.4-10.2) mg/dL - Imaging and Cardiology EKG: image reviewed - Telemetry EKG Rhythm: Sinus Rhythm - EKG Sinus rhythms and dysrhythmias: sinus rhythm AV and intraventricular conduction: right bundle branch block Myocardial infarction: inferior VT (old age inde
--- NOTE | 2019-07-04 11:38 | Consultation ---
History of Present Illness - Reason for Consult Consult date: 07/05/19 acute renal failure, chronic renal failure Requesting physician: DEBBIE MEDINA - History of Present Illness 48-year-old lady with a history of hypertension, stage IV chronic kidney disease and cerebrovascular accident who presents on account of shortness of breath, palpitations and chest tightness of 2 days with duration. Patient was recently started on minoxidil and was being weaned off clonidine. She denies any fever or chills. No cough. In the ER blood pressure was 160/112 mmHg. Potassium was low at 3 mmol /L and creatinine increased from 2.6-3.3 mg/dL. I'm consulted to assist with managing this. Patient is unable to give a history when I examined her. She was drowsy. Apparently she received Ativan for possible Seizure when she went for stress test. Past History Past Medical History: hypertension, renal failure (stage IV chronic kidney disease), stroke Past Surgical History: cholecystectomy, hysterectomy (partial) Social history: denies: smoking, alcohol abuse Family history: CAD Medications and Allergies Allergies Allergy/AdvReac Type Severity Reaction Status Date / Time lisinopril Allergy Anaphylaxis Verified 01/16/16 01:36 montelukast sodium Allergy Swelling Verified 01/16/16 01:36 [From Singulair] verapamil Allergy Hives Verified 01/16/16 01:36 Home Medications Medication Instructions Recorded Confirmed Last Taken Type predniSONE [Deltasone] 20 mg PO QDAY #5 tab 01/16/16 Unknown Rx Allopurinol [Zyloprim] 100 mg PO BID 07/02/19 Unknown History Aspirin [Adult Aspirin] 07/02/19 Unknown History Cholecalciferol (Vitamin D3) 07/02/19 Unknown History [Vitamin D3 5,000 UNIT] Doxazosin [Cardura] 8 mg PO HS 07/02/19 07/02/19 Unknown History Ergocalciferol [Vitamin D2] 1 cap PO QWEEK 07/02/19 07/02/19 Unknown History Ergocalciferol [Vitamin D2] 50,000 unit PO 07/02/19 Unknown History Furosemide [Lasix TAB] 40 mg PO BID 07/02/19 07/02/19 Unknown History Gabapentin [Neurontin] 300 mg PO Q8HR 07/02/19 07/02/19 Unknown History Losartan [Cozaar] 100 mg PO QDAY 07/02/19 07/02/19 Unknown History Losartan/Hydrochlorothiazide 07/02/19 Unknown History [Losartan-Hctz 100-25 mg Tab] Metoprolol Succinate [Toprol Xl] PO BID 07/02/19 Unknown History Minoxidil [Loniten] 10 mg PO QDAY 07/02/19 07/02/19 Unknown History Nitroglycerin [Nitrostat] 0.4 mg SL PRN 07/02/19 07/03/19 Unknown History cloNIDine [Catapres] 0.3 mg PO TID 07/02/19 07/02/19 Unknown History Active Meds: Active Medications Acetaminophen (Tylenol) 650 mg PO Q6H PRN PRN Reason: Pain, Mild (1-3) Last Admin: 07/04/19 06:21 Dose: 650 mg Documented by: Allopurinol (Zyloprim) 100 mg PO QDAY [facility] Last Admin: 07/04/19 10:40 Dose: 100 mg Documented by: Aspirin (Aspirin) 325 mg PO QDAY [facility] Last Admin: 07/04/19 10:40 Dose: 325 mg Documented by: Atorvastatin Calcium (Lipitor) 40 mg PO QHS [facility] Last Admin: 07/03/19 21:36 Dose: 40 mg Documented by: Doxazosin Mesylate (Cardura) 8 mg PO HS [facility] Last Admin: 07/03/19 21:34 Dose: 8 mg Documented by: Ergocalciferol (Vitamin D2) 50,000 unit PO Tu [facility] Furosemide (Lasix) 40 mg PO 0600,1800 [facility] Last Admin: 07/04/19 06:17 Dose: 40 mg Documented by: Gabapentin (Gabapentin) 300 mg PO Q8HR [facility] Last Admin: 07/04/19 06:17 Dose: 300 mg Documented by: Sodium Chloride (Nacl 0.9% 1000 Ml) 1,000 mls @ 125 mls/hr IV DIRECT [facility] Last Admin: 07/03/19 06:40 Dose: 125 mls/hr Documented by: Losartan Potassium (Cozaar) 100 mg PO QDAY [facility] Last Admin: 07/04/19 10:40 Dose: 100 mg Documented by: Metoprolol Succinate (Metoprolol Xl) 100 mg PO BID [facility] Last Admin: 07/04/19 10:40 Dose: 100 mg Documented by: Morphine Sulfate (Morphine) 2 mg IV Q4H PRN PRN Reason: Pain, Moderate (4-6) Last Admin: 07/03/19 06:41 Dose: 2 mg Documented by: Ondansetron HCl (Zofran) 4 mg IV Q6H PRN PRN Reason: Nausea And Vomiting Last Admin: 07/03/19 12:58 Dose: 4 mg Documented by: Review of Systems ROS unobtainable: due to mental status Exam - Vital Signs Vital signs: Vital Signs Resp 07/02/19 13:29 - Physical Exam Narrative exam: Middle-aged -[place] female lying in bed in no acute distress HEENT: NCAT, pink oral mucous membrane Neck: Supple, no venous distention CVS: S1S2 RRR with no murmur, rub or gallop Chest: Clear to auscultation Abdomen: Obese, soft, nontender, no organomegaly, bowel sounds are present Extremities: No edema Neuro: Drowsy, arousable but goes back to sleep, alert no focal deficits Results - Lab Results 07/04/19 05:50 07/04/19 05:50 Most recent lab results Calcium 8.6 mg/dL (8.4-10.2) 07/04/19 05:50 Assessment and Plan - Patient Problems (1) Other acute kidney failure Status: Acute Plan to address problem: Acute kidney injury possibly of hemodynamic origin versus secondary to malignant hypertensive nephrosclerosis. Blood pressure was elevated on presenting. Get urine studies. Follow-up renal function. Gentle volume repletion. Monitor electrolytes and renal function (2) Chronic kidney disease, stage 4 (severe) Status: Acute Plan to address problem: Chronic kidney disease stage IV presently secondary to hypertensive nephrosclerosis. (3) Hypertensive chronic kidney disease with stage 1 through stage 4 chronic kidney disease, or unspecified chronic kidney disease Status: Acute Plan to address problem: Follow blood pressure on adjusted medications (4) Hypokalemia Status: Acute Plan to address problem: Supplement potassium and follow-up
[2019-07-04] MEDS: SODIUM CHLORIDE 0.9% 1000 ML 1,000 ML IV SCH (14:53)
[2019-07-04 16:02] LABS: Bacteria,Urine 1+ /HPF (Negative); Bilirubin,Urine NEG (Negative); Blood,Urine NEG (Negative); Color,Urine Straw (Yellow); Mucus,Urine FEW /HPF; Protein,Urine <15 mg/dL mg/dL (Negative); Urobilinogen,Urine < 2.0 mg/dL (<2.0)
[2019-07-04 16:17] LABS: Creatinine,Urine 97.9 mg/dL (0.1-20.0)
--- NOTE | 2019-07-04 17:56 | Progress Note ---
Assessment and Plan Assessment and plan: Patient is a 48-year-old woman with h/o refractory HTN, stage 4 CKD with Cr 2.5 and 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 She started having these palpitation after PCP started to wean off clonidine to Minoxidil, which also causes nausea. In the ER her BP was 166/112, K 3.0 and Cr 3.3. Her troponin and D-dimer were elevated with nonspecific ST changes on EKG. * pCXR - no infiltrates * VQ scan - low probability for PE NSTEMI with chest pains: treated with IV heparin drip, stress test attempted, ECHO reviewed Ruled out PE Accelerated HTN - resume home meds, hydralazine iv as needed- hold minoxidil/clonidine/ACEI for now due to JUAN LUIS Acute Respiratory failure, poa, resolved now JUAN LUIS on CKD stage IV - monitor renal function- consult nephrology- baseline Cr 2.5, hold ACEI for now h/o CVA w/o any hemiparesis- start on aspirin and statin Hypokalemia, replete: monitor bmp closely, check mg level HLD, cont statin DVT Px, heparin sq pt was down in stress test and [facility] called for sz like activity. Pt had similar episode yesterday, where she has whole body shaking but she is able to talk/mumble during these episodes. She calls it shivering. Also, she had no post-ictal state after this episode. 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 She says that her temple is really stressing her out, she was called regarding one of her member being suicidal. Cardiology cancelled stress test thinking that the Lexiscan that was given may attributed to the seizure. Patient never had seizure before. Consulted Neurology and ordered EEG. Patient is threatening to leave AMA, she wants to go to [facility]. Counseling done. History Interval history: Patient was seen and examined. Follow-up on current diagnosis uncontrolled bp and chest pains, still present. No overnight events reported to me. Patient denies any nausea/vomiting or severe headaches. Imaging, nursing note, chart, labs and old chart reviewed. Discussed with patient. Hospitalist Physical - Physical exam Narrative exam: Gen: WDWN, NAD, Awake, Alert, Orientated HEENT: NCAT, EOMI, PERRL, OP Clear Neck: supple, no adenopathy, no thyromegaly, no JVD CVS/Heart: RRR, normal S1S2, pulses present bilaterally Chest/Lungs: CTA B, Symmetrical chest expansion, good air entry bilaterally GI/Abdomen: soft, NTND, good bowel sounds, no guarding or rebound /Bladder: no suprapubic tenderness, no CVA or paraspinal tenderness Extermity/Skin: no c/c/e, no obvious rash MSK: FROM x 4 Neuro: CN 2-12 grossly intact, no new focal deficits Psych: calm - Constitutional Vitals: Temp Pulse Resp BP Pulse Ox 98.0 F 95 H 18 121/78 94 07/04/19 09:26 07/04/19 10:40 07/04/19 09:26 07/04/19 10:40 07/04/19 09:26 General appearance: Present: no acute distress Results - Labs CBC & Chem 7: 07/04/19 05:50 07/04/19 05:50 Labs: Laboratory Last Values WBC 4.6 K/mm3 (4.5-11.0) 07/04/19 05:50 RBC 3.72 M/mm3 (3.65-5.03) 07/04/19 05:50 Hgb 11.4 gm/dl (10.1-14.3) 07/04/19 05:50 Hct 34.9 % (30.3-42.9) 07/04/19 05:50 MCV 94 fl (79-97) 07/04/19 05:50 MCH 31 pg (28-32) 07/04/19 05:50 MCHC 33 % (30-34) 07/04/19 05:50 RDW 14.0 % (13.2-15.2) 07/04/19 05:50 Plt Count 247 K/mm3 (140-440) 07/04/19 05:50 Lymph % (Auto) 45.4 % (13.4-35.0) H 07/02/19 13:55 [place] % (Auto) 10.7 % (0.0-7.3) H 07/02/19 13:55 Eos % (Auto) 1.1 % (0.0-4.3) 07/02/19 13:55 Baso % (Auto) 0.7 % (0.0-1.8) 07/02/19 13:55 Lymph # 2.9 K/mm3 (1.2-5.4) 07/02/19 13:55 [place] # 0.7 K/mm3 (0.0-0.8) 07/02/19 13:55 Eos # 0.1 K/mm3 (0.0-0.4) 07/02/19 13:55 Baso # 0.0 K/mm3 (0.0-0.1) 07/02/19 13:55 Seg Neutrophils % 42.1 % (40.0-70.0) 07/02/19 13:55 Seg Neutrophils # 2.7 K/mm3 (1.8-7.7) 07/02/19 13:55 PT 13.3 Sec. (12.2-14.9) 07/02/19 18:18 INR 1.02 (0.87-1.13) 07/02/19 18:18 APTT 27.2 Sec. (24.2-36.6) 07/02/19 18:18 D-Dimer 2099.05 ng/mlDDU (0-234) H 07/02/19 13:55 Heparin Anti-Xa Level < 0.10 U.I./ml (0.3-0.7) L 07/04/19 15:05 Sodium 142 mmol/L (137-145) 07/04/19 05:50 Potassium 4.4 mmol/L (3.6-5.0) 07/04/19 05:50 Chloride 106.7 mmol/L (98-107) 07/04/19 05:50 Carbon Dioxide 22 mmol/L (22-30) 07/04/19 05:50 Anion Gap 18 mmol/L 07/04/19 05:50 BUN 18 mg/dL (7-17) H 07/04/19 05:50 Creatinine 2.6 mg/dL (0.7-1.2) H 07/04/19 05:50 Estimated GFR 24 ml/min 07/04/19 05:50 BUN/Creatinine Ratio 7 % 07/04/19 05:50 Glucose 109 mg/dL (65-100) H 07/04/19 05:50 POC Glucose 110 (70-105) H 07/04/19 08:23 Calcium 8.6 mg/dL (8.4-10.2) 07/04/19 05:50 Total Bilirubin 0.30 mg/dL (0.1-1.2) 07/02/19 13:55 AST 20 units/L (5-40) 07/02/19 13:55 ALT 13 units/L (7-56) 07/02/19 13:55 Alkaline Phosphatase 77 units/L (35-129) 07/02/19 13:55 Troponin T 0.088 ng/mL (0.00-0.029) H 07/03/19 17:48 Total Protein 8.2 g/dL (6.3-8.2) 07/02/19 13:55 Albumin 4.4 g/dL (3.9-5) 07/02/19 13:55 Albumin/Globulin Ratio 1.2 % 07/02/19 13:55 Triglycerides 164 mg/dL (2-149) H 07/02/19 13:55 Cholesterol 248 mg/dL (50-199) H 07/02/19 13:55 LDL Cholesterol Direct 184 mg/dL (50-130) H 07/02/19 13:55 HDL Cholesterol 49 mg/dL (40-59) 07/02/19 13:55 Cholesterol/HDL Ratio 5.06 % 07/02/19 13:55 Urine Color Straw (Yellow) 07/04/19 11:41 Urine Turbidity Clear (Clear) 07/04/19 11:41 Urine pH 5.0 (5.0-7.0) 07/04/19 11:41 Ur Specific [place] 1.009 (1.003-1.030) 07/04/19 11:41 Urine Protein <15 mg/dl mg/dL (Negative) 07/04/19 11:41 Urine Glucose (UA) Neg mg/dL (Negative) 07/04/19 11:41 Urine Ketones Neg mg/dL (Negative) 07/04/19 11:41 Urine Blood Neg (Negative) 07/04/19 11:41 Urine Nitrite Neg (Negative) 07/04/19 11:41 Urine Bilirubin Neg (Negative) 07/04/19 11:41 Urine Urobilinogen < 2.0 mg/dL (<2.0) 07/04/19 11:41 Ur Leukocyte Esterase Neg (Negative) 07/04/19 11:41 Urine WBC (Auto) 1.0 /HPF (0.0-6.0) 07/04/19 11:41 Urine RBC (Auto) 2.0 /HPF (0.0-6.0) 07/04/19 11:41 U Epithel Cells (Auto) 7.0 /HPF (0-13.0) 07/04/19 11:41 Urine Bacteria (Auto) 1+ /HPF (Negative) 07/04/19 11:41 Urine Mucus Few /HPF 07/04/19 11:41 Urine Creatinine 97.9 mg/dL (0.1-20.0) H 07/04/19 15:20 Urine Sodium 90 mmol/L 07/04/19 15:20 Urine Total Protein 7 mg/dL (5-11.8) 07/04/19 15:20
[2019-07-04] MEDS ORDERED: ACETAMINOPHEN 325 MG TAB PO PRN (17:59)
[2019-07-04] MEDS ORDERED: ONDANSETRON 4 MG/2 ML INJ IV PRN (17:59)
[2019-07-04] MEDS ORDERED: SODIUM CHLORIDE 0.45% 1000 ML 1,000 ML IV SCH (18:00)
--- NOTE | 2019-07-04 18:16 | Discharge Summary ---
Providers - Providers Date of Admission: 07/02/19 17:56 Date of discharge: 07/04/19 Attending physician: DEBBIE MEDINA 07/02/19 21:13 Consult to Physician [CONS] Routine Comment: Consulting Provider: ANUPAM PRETTY Physician Instructions: Reason For Exam: elevated trop 07/03/19 19:02 Consult to Physician [CONS] Routine Comment: Consulting Provider: DEBI DEGROOT Physician Instructions: Reason For Exam: ARF/CKD 07/04/19 15:51 Consult to Physician [CONS] Routine Comment: Consulting Provider: MIO MARTIN Physician Instructions: Reason For Exam: ?seizure, EEG needed Primary care physician: HELIO BAUTISTA MD Hospitalization Condition: Undetermined Hospital course: Patient is a 48-year-old woman with h/o refractory HTN, stage 4 CKD with Cr 2.5 and 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 She started having these palpitation after PCP started to wean off clonidine to Minoxidil, which also causes nausea. In the ER her BP was 166/112, K 3.0 and Cr 3.3. Her troponin and D-dimer were elevated with nonspecific ST changes on EKG. * pCXR - no infiltrates * VQ scan - low probability for PE NSTEMI with chest pains: treated with IV heparin drip, stress test attempted, ECHO reviewed Ruled out PE Accelerated HTN - resume home meds, hydralazine iv as needed- hold minoxidil/clonidine/ACEI for now due to JUAN LUIS Acute Respiratory failure, poa, resolved now JUAN LUIS on CKD stage IV - monitor renal function- consult nephrology- baseline Cr 2.5, hold ACEI for now h/o CVA w/o any hemiparesis- start on aspirin and statin Hypokalemia, replete: monitor bmp closely, check mg level HLD, cont statin DVT Px, heparin sq pt was down in stress test and CODE MET called for sz like activity. Pt had similar episode yesterday, where she has whole body shaking but she is able to talk/mumble during these episodes. She calls it shivering. Also, she had no post-ictal state after this episode. 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 She says that her yarsani is really stressing her out, she was called regarding one of her member being suicidal. Cardiology cancelled stress test thinking that the Lexiscan that was given may attributed to the seizure. Patient never had seizure before. Consulted Neurology and ordered EEG. Patient left AMA, she always want to go to [facility] but EMS brought her here. Counseling done. Disposition: DC-07 LEFT AGAINST MED ADVICE Time spent for discharge: 33 min Core Measure Documentation - Palliative Care Palliative Care/ Comfort Measures: Not Applicable - Core Measures Any of the following diagnoses?: acute CA - VTE Discharge Requirements Deep Vein Thrombosis/Pulmonary Embolism Present on Admission: No Has pt received <5 days of overlap therapy or INR<2.0: No Anticoagulant overlap therapy prescribed at discharge: No Contraindication No Overlap Therapy order at DC: Not Indicated - Acute CA Discharge Requirements Aspirin at discharge: No Reason for no aspirin on DC: Patient refusal CORBY/ARB for LVSD if EF <40%: No Reason for no CORBY/ARB: Patient refusal Beta gatito at discharge: No Reason for no beta gatito on DC: Patient refusal Statin for LDL = or >100 mg/dl on DC: No Reason for no statin on DC: Patient refusal Exam - Physical Exam Narrative exam: Gen: WDWN, NAD, Awake, Alert, Orientated HEENT: NCAT, EOMI, PERRL, OP Clear Neck: supple, no adenopathy, no thyromegaly, no JVD CVS/Heart: RRR, normal S1S2, pulses present bilaterally Chest/Lungs: CTA B, Symmetrical chest expansion, good air entry bilaterally GI/Abdomen: soft, NTND, good bowel sounds, no guarding or rebound /Bladder: no suprapubic tenderness, no CVA or paraspinal tenderness Extermity/Skin: no c/c/e, no obvious rash MSK: FROM x 4 Neuro: CN 2-12 grossly intact, no new focal deficits Psych: calm - Constitutional Vitals: Temp Pulse Resp BP Pulse Ox 98.0 F 95 H 18 121/78 94 07/04/19 09:26 07/04/19 10:40 07/04/19 09:26 07/04/19 10:40 07/04/19 09:26 Plan Follow up with: PRIMARY CAREMD [Referring] - 3-5 Days Forms: AMA Form
[2019-07-04] MEDS ORDERED: HEPARIN 5,000 UNIT/1 ML VIAL SUB-Q SCH (22:00)
[2019-07-05] MEDS ORDERED: PANTOPRAZOLE 40 MG TAB PO SCH (10:00)
[2019-07-05] MEDS ORDERED: ASPIRIN 81 MG TAB CHEW PO SCH (10:00)
[2019-07-05] MEDS ORDERED: FUROSEMIDE 40 MG TAB PO SCH (10:00)
[2019-07-09] MEDS ORDERED: ERGOCALCIFEROL (VIT D2) 50,000 UNIT CAP PO SCH ×2 (10:00)
== END 2019-07-04 17:31 | disposition left against medical advice (07) | DRG 280 ==
LOC: ED 13:19 → 4A 17:56
PROVIDERS: ADMIT Internal Medicine; ATTEND Internal Medicine
DX: I21.4 Non-ST elevation (NSTEMI) myocardial infarction (principal); J96.01 Acute respiratory failure with hypoxia; N17.9 Acute kidney failure, unspecified; N18.4 Chronic kidney disease, stage 4 (severe); I12.9 Hypertensive chronic kidney disease with stage 1 through stage 4 chronic kidney disease, or unspecified chronic kidney disease; E87.6 Hypokalemia; E66.9 Obesity, unspecified; E78.5 Hyperlipidemia, unspecified; Z86.73 Personal history of transient ischemic attack (TIA), and cerebral infarction without residual deficits; Z90.49 Acquired absence of other specified parts of digestive tract; Z90.711 Acquired absence of uterus with remaining cervical stump; Z82.49 Family history of ischemic heart disease and other diseases of the circulatory system; Z79.899 Other long term (current) drug therapy; Z68.30 Body mass index [BMI] 30.0-30.9, adult
CPT/HCPCS: 36415; 71046; 78582; 80048; 80053; 80061; 81001; 82570; 82962; 84156; 84300; 84484; 85014; 85018; 85025; 85027; 85049; 85379; 85520; 85610; 85730; 93005; 93010; 93306; 96374; G0378; A9270-GY; A9540; A9558; J0500; J1644; J2060; J2270; J2405; J2785; J7030